=== PATIENT | male | born 1960 | race Caucasian/White ===

== ENCOUNTER 2021-10-13 20:23 | Emergency (ER) | payer OTHER ==
[~2021-10-13] VITALS: Ht 170.2 cm; Wt 89.0 kg
[2021-10-13] VITALS (13 sets, daily range): BP systolic 147–183; BP diastolic 95–113
[2021-10-13 20:59] LABS: HEMATOCRIT 43.9 % (39.0-50.0); HEMOGLOBIN 14.8 g/dl (14.0-18.0); IMMATURE GRANULOCYTES 0.4 % (0.0-5.0); MEAN CELL VOLUME 94.6 fL CALC (80.0-100.0); MEAN CORPUSCULAR HGB 31.9 pG CALC (26.0-32.0); MEAN CORPUSCULAR HGB CONC 33.7 g/dL CAL (32.0-36.0); NEUT# 2.83 thou/uL (1.82-7.42); RED BLOOD COUNT 4.64 mill/uL (4.70-6.10); RED CELL DISTRI WIDTH 13.9 % (11.5-15.5)
[2021-10-13 21:14] LABS: ALBUMIN 4.3 g/dL (3.2-5.0); ALKALINE PHOSPHATASE 56 u/l (38-126); ANION GAP 11 (6-22 (CALC)); BILIRUBIN, TOTAL 0.5 mg/dL (0.0-1.4); BUN 11 mg/dL (9-20); BUN/CREATININE RATIO 14 (12-20 (CALC)); CARBON DIOXIDE 26 mmol/l (22-30); CHLORIDE 107 mmol/l (95-108); CREATININE 0.8 mg/dL (0.7-1.3); GFR > 60 ML/MIN (>=60 (CALC)); GFR FOR AFR.AMER. > 60 ML/MIN (>=60 (CALC)); POTASSIUM 3.8 mmol/l (3.5-5.1); SGOT/AST 55 u/l (17-59); SODIUM 140 mmol/l (137-146); TOTAL PROTEIN 7.7 g/dL (6.3-8.2)
[2021-10-13 21:26] LABS: MYOGLOBIN 86 ng/mL (0 - 121)
[2021-10-13 21:33] LABS: D-DIMER 0.56 mg/L (0.19-0.60)
[2021-10-13 21:37] LABS: ACT PARTIAL THROMBO TIME 24.3 SECONDS (20.0-32.5); PROTHROMBIN TIME 10.7 SECONDS (9.0-12.5)
[2021-10-13] MEDS ORDERED: PREDNISONE50 MG PO (22:39)
[2021-10-13] MEDS ORDERED: ROBITUSSIN AC10 ML PO (22:41)
== END 2021-10-13 23:48 | disposition home or self-care (01) | DRG 203 ==
LOC: ED 20:23
PROVIDERS: Family Medicine
DX: J20.8 Acute bronchitis due to other specified organisms (principal); K21.9 Gastro-esophageal reflux disease without esophagitis; Z86.16 Personal history of COVID-19; Z20.822 Contact with and (suspected) exposure to COVID-19

== ENCOUNTER 2024-08-26 07:56 | Day surgery (SDC) | payer OTHER ==
[~2024-08-26 07:56] MED LIST: BIOTIN1 MG PO; DOXYCYCLINE100 MG PO; FLOVENT HF110 MCG/AC; IPRATROPIU0.5 MG/3 M IN; LOSARTAN PO; LOSARTAN POTASS50 MG PO; MAGNESIUM CITR100 M1 PO; METFORMIN HCL500 M1 PO; MILK THISTL2 PO; MULTI VIT PO; OMEPRAZOLE DR40 MG; OZEMPIC; POTASSIUM CITRA PO; PREDNISONE50 MG PO; PROAIR HFA IN; ROBITUSSIN AC10 ML PO; SYMBICORT 80-4.5MCG; TADALAFIL5 MG
[2024-08-26] MEDS ORDERED: FAMOTIDINE 10MG/ML 2ML SDV IV ONE (07:59)
[2024-08-26] MEDS ORDERED: LACTATED RINGER'S 1,000 ML IV ONE (08:00)
[2024-08-26] MEDS ORDERED: STERILE WATER FOR IRRIGATION 1,000 ML BTL IR ONE (09:38)
[2024-08-26 10:05] VITALS: BP 153/94
[2024-08-26] MEDS ORDERED: GLYCOPYRROLATE 0.2 MG/ML IV ONE (12:43)
[2024-08-26] MEDS ORDERED: LIDOCAINE HCL 2% 2ML SDV IV ONE (12:43)
[2024-08-26] MEDS ORDERED: PROPOFOL 500 MG/50 ML VIAL IV ONE (12:43)
== END 2024-08-26 10:18 | disposition home or self-care (01) | DRG 395 ==
LOC: ENDO 07:56 → ORM 08:40 → ENDO 08:40 → ORM 09:45 → ENDO 10:18
PROVIDERS: ATTEND Surgery
PROC: 0DBL8ZX Excision of Transverse Colon, Via Natural or Artificial Opening Endoscopic, Diagnostic (ICD-10-PCS; principal; 2024-08-26)
DX: D12.3 Benign neoplasm of transverse colon (principal); K57.30 Diverticulosis of large intestine without perforation or abscess without bleeding; I10 Essential (primary) hypertension; E11.9 Type 2 diabetes mellitus without complications; J45.909 Unspecified asthma, uncomplicated; K21.9 Gastro-esophageal reflux disease without esophagitis
CPT/HCPCS: J1596